=== PATIENT | female | born 1985 | race Caucasian/White ===

== ENCOUNTER 2021-04-23 10:26 | Emergency (ER) | payer OTHER ==
--- NOTE | 2021-04-23 11:45 | RAD REPORT ---
EXAM DESCRIPTION: RADSacrum And Csanhi9004/23/2021 11:39 am CLINICAL HISTORY: Back pain status post fall FINDINGS: No fracture is seen
--- NOTE | 2021-04-23 11:45 | RAD REPORT ---
EXAM DESCRIPTION: RAD - Forearm Right - 04/23/2021 11:39 am CLINICAL HISTORY: Right arm pain status post fall FINDINGS: No fracture is seen.
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
[2021-04-23 12:07] VITALS: BP 126/76; TEMP 98.3; O2SAT 100
[2021-04-23] MEDS ORDERED: CYCLOBENZAPRINE 10 MG TAB ONE (12:23)
[2021-04-23] MEDS ORDERED: predniSONE 20 MG TAB ONE (12:23)
== END 2021-04-23 12:01 | disposition home or self-care (01) ==
LOC: ER 10:26
DX: S60.812A Abrasion of left wrist, initial encounter (principal); S50.11XA Contusion of right forearm, initial encounter; Y04.2XXA Assault by strike against or bumped into by another person, initial encounter; Y92.481 Parking lot as the place of occurrence of the external cause; Z91.041 Radiographic dye allergy status
CPT/HCPCS: 72220; 73090; 99284; J7512

== ENCOUNTER 2024-03-20 16:05 | Emergency (ER) | payer OTHER ==
[2024-03-20] MEDS ORDERED: FAMOTIDINE 20 MG/2 ML VIAL IV ONE (17:46)
[2024-03-20] MEDS ORDERED: KETOROLAC 30 MG/ML INJ ONE (17:46)
[2024-03-20] MEDS ORDERED: ONDANSETRON 4 MG/2 ML VIAL ONE (17:46)
[2024-03-20] MEDS ORDERED: DICYCLOMINE HCL 10 MG CAP ONE (17:46)
[2024-03-20] MEDS ORDERED: NA CHLORIDE 0.9% 1,000 ML ONE (17:47)
[2024-03-20 17:56] LABS: Absolute Eosinophils 0.1 K/uL (0-0.5); Absolute Lymphocytes (CBC) 1.4 K/uL (0.7-4.9); Absolute Monocytes 0.7 K/uL (0.1-1.3); Absolute Neutrophil 4.8 K/uL (1.8-8.0); Basophils % 0.4 % (0-1.3); Eosinophils % 1.3 % (0-4.4); Hemoglobin 13.8 g/dL (12.0-15.0); Lymphocytes % 19.5 % (15.3-44.8); MCH 31.7 pg (27.0-35.0); MCHC 34.4 g/dL (32.0-36.0); MCV 92.3 fL (80-100); MPV 8.6 fL (7.6-11.3); Monocytes % 10.7 % (3.3-12.3); Neutrophils % 68.1 % (41.7-73.7); Nucleated Red Blood Cells % 0.1 % (0-0); Platelets 203 thou/uL (152-406); RBC Red Blood Cell Count 4.33 M/uL (3.86-4.86); Red Cell Distribution Width 13.2 % (12.1-15.2)
[2024-03-20 17:57] LABS: Specific Gravity 1.005 (1.005-1.030)
[2024-03-20 17:58] LABS: Specific Gravity 1.005 (1.005-1.030); Sqamous Epithelial <5 /HPF (None Seen); Urine Bacteria <20 /HPF (<20); Urine Bilirubin NEGATIVE (Negative); Urine Blood Trace (Negative); Urine Clarity Turbid (Clear); Urine Color Colorless (Yellow); Urine Crystals Unidentified Few /HPF (None Seen); Urine Culture Reflex Order NOT NEEDED; Urine Glucose NEGATIVE (Negative); Urine Ketones NEGATIVE (Negative); Urine Microscopic Reflex YN ORDER UMIC; Urine Nitrite NEGATIVE (Negative); Urine Protein NEGATIVE (Negative); Urine RBC <5 /HPF (None Seen); Urine Urobilinogen Normal (Normal); Urine WBC <5 /HPF (<5); Urine Yeast (Budding) Trace /HPF (None Seen)
[2024-03-20 18:17] LABS: Albumin 3.5 g/dL (3.4-5.0); Albumin/Globulin Ratio 0.8 (1.1-1.8); Anion Gap 8.3 mEq/L (5.0-15.0); Bilirubin Total 0.3 mg/dL (0.2-1.0); Globulin 4.4 g/dL (2.3-3.5); Potassium 3.3 mEq/L (3.5-5.1); Protein, Total 7.9 g/dL (6.4-8.2)
[2024-03-20 18:49] LABS: CDIFF INTERNAL NEG CONTROL White Background (WHITE BKGD); STOOL CONSISTENCY Liquid/Semi-Solid
--- NOTE | 2024-03-20 18:50 | RAD REPORT ---
EXAM DESCRIPTION: CT - Abdomen Pelvis Wo Contrast - 03/20/2024 6:41 pm CLINICAL HISTORY: Abdominal pain COMPARISON: 2014 TECHNIQUE: Computed axial tomography of the abdomen and pelvis was obtained. IV and oral contrast we re not requested. All CT scans are performed using dose optimization technique as appropriate and may include automated exposure control or mA/KV adjustment according to patient size. FINDINGS: The evaluation of solid organs, vessels and bowel is limited secondary to the lack of con trast administration. The liver, spleen, pancreas, adrenals and right kidney appear grossly normal. Left nephrectomy No adnexal mass Small umbilical hernia There is no evidence of diverticulitis. IMPRESSION: No acute abnormality is displayed.
[2024-03-20 18:51] LABS: C.diff Antigen/Toxin Ag neg : Tox neg (NEG : NEG)
[2024-03-20] MEDS ORDERED: POTASSIUM 25 MEQ EFFERV TAB ONE (19:14)
--- NOTE | 2024-03-20 19:23 | ER ---
Nurse's Notes [facility] Name: Vicki Rivera Age: 38 yrs Sex: Female : 1985 Arrival Date: 03/20/2024 Time: 16:05 Bed 18 Private MD: Diagnosis: Nausea with vomiting, unspecified;Diarrhea, unspecified;Hypokalemia Presentation: 03/20 16:45 Chief complaint: Patient states: she has been having diarrhea, intolerance to food and ap3 fluids, and lower abdominal pain since Friday. patient also reports fevers that began . patient reports a pain 7/10 on the pain scale. patient also reports skin 'bump' on back that is more irritated than her baseline. Coronavirus screen: At this time, the client does not indicate any symptoms associated with coronavirus-19. Ebola Screen: No symptoms or risks identified at this time. Initial Sepsis Screen: Does the patient meet any 2 criteria? HR > 90 bpm. Does the patient have a suspected source of infection? No. Patient's initial sepsis screen is negative. Risk Assessment: Do you want to hurt yourself or someone else? Patient reports no desire to harm self or others. Onset of symptoms was March 17, 2024. 16:45 Method Of Arrival: Ambulatory ap3 16:45 Acuity: KANDY 3 ap3 Triage Assessment: 16:49 General: Appears ill, Behavior is calm, cooperative, appropriate for age, Reports ap3 chills for fever for feeling ill for fatigue for. Pain: Complains of pain in abdomen. Neuro: Level of Consciousness is awake, alert, obeys commands, Oriented to person, place, time, situation, Appropriate for age. Cardiovascular: Patient's skin is warm and dry. Respiratory: Airway is patent Respiratory effort is even, unlabored, Respiratory pattern is regular, symmetrical. GI: Reports lower abdominal pain, upper abdominal pain, diarrhea, nausea. Historical: - Allergies: 16:49 Iodinated Contrast Media - IV Dye; ap3 - PMHx: 16:49 None; ap3 - PSHx: 16:49 one kidney; ap3 - Immunization history:: Adult Immunizations up to date. - Infectious Disease History:: Denies. - Social history:: Smoking status: Patient denies any tobacco usage or history of. Screenin:50 [facility] ED Fall Risk Assessment (Adult) History of falling in the last 3 months, ap3 including since admission No falls in past 3 months (0 pts) Confusion or Disorientation No (0 pts) Intoxicated or Sedated No (0 pts) Impaired Gait No (0 pts) Mobility Assist Device Used No (0 pt) Altered Elimination No (0 pt) Score/Fall Risk Level 0 - 2 = Low Risk Oriented to surroundings, Maintained a safe environment, Educated pt \T\ family on fall prevention, incl call for assistance when getting out of bed, Assessed \T\ reinforced patient's understanding of fall precautions, Hourly rounding (assess needs \T\ fall precautionary measures) done, Used ambulatory aids as needed (educated on \T\ assisted with), Used gait belt as appropriate. Abuse screen: Denies threats or abuse. Nutritional screening: No deficits noted. Tuberculosis screening: No symptoms or risk factors identified. Assessment: 18:23 General: Appears in no apparent distress. comfortable, Behavior is calm, cooperative, ld1 appropriate for age. Pain: Denies pain. Neuro: Level of Consciousness is awake, alert, obeys commands, Oriented to person, place, time, situation, Appropriate for age. Cardiovascular: Capillary refill < 3 seconds Patient's skin is warm and dry. Respiratory: Airway is patent Respiratory effort is even, unlabored. GI: Abdomen is flat, non-distended. : No signs and/or symptoms were reported regarding the genitourinary system. EENT: No signs and/or symptoms were reported regarding the EENT system. Derm: No signs and/or symptoms reported regarding the dermatologic system. Musculoskeletal: No signs and/or symptoms reported regarding the musculoskeletal system. 19:24 Reassessment: ASSUMED CARE OF PT. PT LYING IN BED. NO DISTRESS NOTED. VS STABLE. FAMILY jj7 AT BEDSIDE. General: Appears in no apparent distress. comfortable, Behavior is calm, cooperative, appropriate for age. Pain: Denies pain. Vital Signs: 16:45 BP 120 / 75; Pulse 106; Resp 17; Pulse Ox 100% ; Weight 63.96 kg; Height 5 ft. 4 in. ; ap3 Pain 7/10; 16:51 Temp 98.9(O); ap3 18:23 BP 103 / 63; Pulse 75; Resp 18; Pulse Ox 100% on R/A; ld1 19:24 BP 103 / 68; Pulse 93; Resp 17; Pulse Ox 100% ; jj7 19:42 BP 101 / 66; Pulse 90; Resp 17; Temp 98.1; Pulse Ox 100% ; jj7 16:45 Body Mass Index 24.20 (63.96 kg, 162.56 cm) ap3 16:45 Pain Scale: Adult ap3 ED Course: 16:23 Patient arrived in ED. mg5 16:24 Ranjana Gandara FNP-C is PHCP. kb 16:24 Roby Monroy MD is Attending Physician. kb 16:49 Triage completed. ap3 16:50 Arm band placed on right wrist. ap3 17:40 C.difficile Sent. tl4 17:40 Stool Culture Sent. tl4 17:40 CBC with Diff Sent. tl4 17:40 CMP Sent. tl4 17:40 Lipase Sent. tl4 17:40 Test, Urine Sent. tl4 17:40 Urinalysis w/ reflexes Sent. tl4 17:40 Initial lab(s) drawn, by ct, sent to lab. Urine collected: clean catch specimen, STOOL tl4 CULTURE. Inserted saline lock: 22 gauge in right antecubital area, using aseptic technique. Blood collected. Flushed with 10 mL NS. 17:57 PHCP role handed off by Ranjana Gandara FNP-C cp 17:57 Chance Brand PA is PHCP. cp 18:23 Nadine Hicks, ISAAK is Primary Nurse. ld1 18:23 Patient has correct armband on for positive identification. Placed in gown. Bed in low ld1 position. Call light in reach. Side rails up X2. Pulse ox on. NIBP on. Door closed. Noise minimized. Warm blanket given. 18:23 No provider procedures requiring assistance completed. ld1 18:43 Abdomen In Process Unspecified. EDMS 19:42 IV discontinued, intact, bleeding controlled, No redness/swelling at site. Pressure jj7 dressing applied. Administered Medications: 17:55 Drug: Dicyclomine PO 20 mg PO once Route: PO; tl4 19:44 Follow up: Response: Marked relief of symptoms jj7 17:56 Drug: NS 0.9% IV 1000 ml IV at 1 bolus Per protocol; 1000 mL bolus Route: IV; Rate: 1 tl4 bolus; Site: right antecubital; Delivery: Primary tubing; 19:44 Follow up: IV Status: Completed infusion jj7 17:56 Drug: Famotidine IVP 20 mg IVP once; dilute with 10 mL 0.9% NaCl; give over 2 minutes tl4 Route: IVP; Infused Over: 2 mins; Site: right antecubital; 19:44 Follow up: Response: Marked relief of symptoms jj7 17:56 Drug: Ondansetron IVP 4 mg IVP once; over 2 minutes Route: IVP; Infused Over: 2 mins; tl4 Site: right antecubital; 19:44 Follow up: Response: Marked relief of symptoms jj7 17:57 Drug: TORadol - Ketorolac IVP 15 mg IVP once Route: IVP; Site: right antecubital; tl4 19:44 Follow up: Response: Marked relief of symptoms jj7 19:24 Drug: Potassium PO Effervescent Tablet 50 mEq PO once; dissolve in 4 ounces of water or jj7 juice Route: PO; 19:43 Follow up: Response: No adverse reaction jj7 Medication: 18:23 VIS not applicable for this client. ld1 Outcome: 19:23 Discharge ordered by . nichelle 19:42 Discharged to home ambulatory, with significant other, jj7 19:42 Condition: improved 19:42 Discharge instructions given to patient, Instructed on discharge instructions, medication usage, Demonstrated understanding of instructions, medications, Prescriptions given X 2, 19:44 Patient left the ED. jj7 Signatures: Dispatcher [employer] EDMS Ranjana Gandara, ANNALISA-C TONGUE AND QUARTER STITCHER-Chance Alvarez PA PA cp Prokisch, Amanda, RN RN ap3 Nadine Hicks RN RN ld1 Arsen Pardo RN RN jj7 Tawny Chapa mg5 Bar Cabezas RN RN tl4 Corrections: (The following items were deleted from the chart) 16:50 16:45 Chief complaint: Patient states: she has been having diarrhea, intolerance to ap3 food and fluids, and lower abdominal pain since Friday. patient also reports fevers that began . patient reports a pain 7/10 on the pain scale ap3
--- NOTE | 2024-03-20 19:23 | EDPHYS ---
Physician Documentation [facility] Name: Vicki Rivera Age: 38 yrs Sex: Female : 1985 Arrival Date: 03/20/2024 Time: 16:05 Bed 18 Private MD: ED Physician Roby Monroy HPI: 03/20 16:55 This 38 yrs old Female presents to ER via Ambulatory with complaints of Flu Symptoms. kb 16:55 Pt is a 38 year old female who presents for diarrhea, nausea, abd pain and intermittent kb fever that started 4 days ago and has gotten worse. Denies any alleviating or aggravating factors. Reports coworker had a "24 hour bug" with diarrhea this week but was only out for one day so she thinks this is something else. . Historical: - Allergies: 16:49 Iodinated Contrast Media - IV Dye; ap3 - PMHx: 16:49 None; ap3 - PSHx: 16:49 one kidney; ap3 - Immunization history:: Adult Immunizations up to date. - Infectious Disease History:: Denies. - Social history:: Smoking status: Patient denies any tobacco usage or history of. ROS: 16:55 Constitutional: As per HPI kb Exam: 16:55 Constitutional: This is a well developed, well nourished patient who is awake, alert, kb and in no acute distress. Head/Face: Normocephalic, atraumatic. ENT: Moist Mucous membranes Cardiovascular: Regular rate Respiratory: Respirations even and unlabored. No increased work of breathing. Talking in full sentences Skin: Warm, dry with normal turgor. Normal color. MS/ Extremity: Pulses equal, no cyanosis. Neurovascular intact. Full, normal range of motion. Neuro: Awake and alert, GCS 15, oriented to person, place, time, and situation. Moves all extremities. Normal gait. 16:55 Abdomen/GI: Inspection: abdomen appears normal, Bowel sounds: normal, Palpation: soft, in all quadrants, mild abdominal tenderness, in the right lower quadrant, Vital Signs: 16:45 BP 120 / 75; Pulse 106; Resp 17; Pulse Ox 100% ; Weight 63.96 kg; Height 5 ft. 4 in. ; ap3 Pain 7/10; 16:51 Temp 98.9(O); ap3 18:23 BP 103 / 63; Pulse 75; Resp 18; Pulse Ox 100% on R/A; ld1 19:24 BP 103 / 68; Pulse 93; Resp 17; Pulse Ox 100% ; jj7 19:42 BP 101 / 66; Pulse 90; Resp 17; Temp 98.1; Pulse Ox 100% ; jj7 16:45 Body Mass Index 24.20 (63.96 kg, 162.56 cm) ap3 16:45 Pain Scale: Adult ap3 MDM: 16:24 Patient medically screened. kb 16:55 Data reviewed: vital signs, nurses notes. kb 03/20 16:49 Order name: CBC with Diff; Complete Time: 18:00 kb 03/20 16:49 Order name: CMP; Complete Time: 19:11 kb 03/20 19:11 Interpretation: Normal except: K 3.3; BUN 6; CRE 1.06; GFR 70; GLOB 4.4; A/G 0.8. cp 03/20 16:49 Order name: Lipase; Complete Time: 19:11 kb 03/20 16:49 Order name: Test, Urine; Complete Time: 18:00 kb 03/20 16:49 Order name: Urinalysis w/ reflexes; Complete Time: 18:00 kb 03/20 16:49 Order name: Stool Culture kb 03/20 16:49 Order name: C.difficile; Complete Time: 19:11 kb 03/20 17:50 Order name: Abdomen ; Complete Time: 19:11 EDMS 03/20 16:49 Order name: IV Saline Lock; Complete Time: 17:40 kb 03/20 16:49 Order name: Labs collected and sent; Complete Time: 17:40 kb 03/20 19:12 Order name: PO challenge; Complete Time: 19:24 cp Administered Medications: 17:55 Drug: Dicyclomine PO 20 mg PO once Route: PO; tl4 19:44 Follow up: Response: Marked relief of symptoms jj7 17:56 Drug: NS 0.9% IV 1000 ml IV at 1 bolus Per protocol; 1000 mL bolus Route: IV; Rate: 1 tl4 bolus; Site: right antecubital; Delivery: Primary tubing; 19:44 Follow up: IV Status: Completed infusion jj7 17:56 Drug: Famotidine IVP 20 mg IVP once; dilute with 10 mL 0.9% NaCl; give over 2 minutes tl4 Route: IVP; Infused Over: 2 mins; Site: right antecubital; 19:44 Follow up: Response: Marked relief of symptoms jj7 17:56 Drug: Ondansetron IVP 4 mg IVP once; over 2 minutes Route: IVP; Infused Over: 2 mins; tl4 Site: right antecubital; 19:44 Follow up: Response: Marked relief of symptoms jj7 17:57 Drug: TORadol - Ketorolac IVP 15 mg IVP once Route: IVP; Site: right antecubital; tl4 19:44 Follow up: Response: Marked relief of symptoms jj7 19:24 Drug: Potassium PO Effervescent Tablet 50 mEq PO once; dissolve in 4 ounces of water or jj7 juice Route: PO; 19:43 Follow up: Response: No adverse reaction jj7 Disposition: 19:45 Co-signature as Attending Physician, Roby Monroy MD I reviewed the patient's care rt provided by the Advanced Practice Provider and agree with the diagnosis and treatment plan. Disposition Summary: 03/20/24 19:23 Discharge Ordered Notes: Location: Home cp Problem: new cp Symptoms: have improved cp Condition: Stable cp Diagnosis - Nausea with vomiting, unspecified cp - Diarrhea, unspecified cp - Hypokalemia cp Followup: cp - With: Private Physician - When: 2 - 3 days - Reason: Worsening of condition Discharge Instructions: - Discharge Summary Sheet cp - Food Choices to Help Relieve Diarrhea, Adult cp - Diarrhea, Adult cp - Nausea and Vomiting, Adult cp Forms: - Medication Reconciliation Form cp - Antibiotic Education cp - Prescription Opioid Use cp - Patient Portal Instructions cp - Leadership Thank You Letter cp Prescriptions: - Zofran 4 mg Oral Tablet - take 1 tablet ORAL route every 12 hours As needed; 20 tablet; Refills: 0, cp Product Selection Permitted - dicyclomine 20 mg Oral tablet - take 1 tablet ORAL route 4 times per day; 30 tablet; Refills: 0, Product cp Selection Permitted Signatures: Dispatcher [employer] Ranjana Nelson FNP-C FNP-Chance Alvarez PA PA cp Rosemarie Clark RN RN ap3 Nadine Hicks RN RN ld1 Arsen Pardo RN RN jj7 Roby Monroy MD MD rt Logdahl, Bar, RN RN tl4 Corrections: (The following items were deleted from the chart) 16:49 16:49 Abdomen Pelvis W Con+CT.RAD.BRZ ordered. EDMS EDMS
[2024-03-20 19:49] VITALS: O2SAT 100
[2024-03-20 19:59] VITALS: BP 101/66; TEMP 98.1
== END 2024-03-20 19:44 | disposition home or self-care (01) ==
LOC: ER 16:05
DX: R11.2 Nausea with vomiting, unspecified (principal); R19.7 Diarrhea, unspecified; E87.6 Hypokalemia; R10.31 Right lower quadrant pain
CPT/HCPCS: 96361; 87045; 85025; 81001; 36415; 81025; 87046; 87324; 83690; 80053; 74176; 96375; 96374; 99284; J2405; J7030

== ENCOUNTER 2024-11-12 08:32 | Emergency (ER) | payer OTHER ==
--- NOTE | 2024-11-12 10:07 | RAD REPORT ---
Exam:Hand Right 3 View HISTORY: Right hand pain FINDINGS: Moderately displaced comminuted fracture distal diaphysis fifth metacarpal with some angulation prese nt at the fracture site. Possible lucency surrounding the fracture site may indicate that this is pathologic. No dislocation
--- NOTE | 2024-11-12 10:43 | ER ---
Nurse's Notes [facility] Name: Vicki Rivera Age: 39 yrs Sex: Female : 1985 Arrival Date: 11/12/2024 Time: 08:32 Bed 19 Private MD: Diagnosis: Fracture of right fifth metacarpal Presentation: 11/12 08:47 Chief complaint: Patient states: she was playing with her son last night at approx 1830 ap3 when she injured her right hand. patient is complaining of throbbing pain to her right hand after icing and one ibuprofen. Coronavirus screen: At this time, the client does not indicate any symptoms associated with coronavirus-19. Ebola Screen: No symptoms or risks identified at this time. Initial Sepsis Screen: Does the patient meet any 2 criteria? No. Patient's initial sepsis screen is negative. Does the patient have a suspected source of infection? No. Patient's initial sepsis screen is negative. Risk Assessment: Do you want to hurt yourself or someone else? Patient reports no desire to harm self or others. Onset of symptoms was November 11, 2024 at 18:30. 08:47 Method Of Arrival: Ambulatory ap3 08:47 Acuity: KANDY 4 ap3 Triage Assessment: 08:49 General: Appears in no apparent distress. Behavior is calm, cooperative, appropriate ap3 for age. Pain: Complains of pain in right hand Pain began 1 day ago. Neuro: Level of Consciousness is awake, alert, obeys commands, Oriented to person, place, time, situation, Appropriate for age. Cardiovascular: Patient's skin is warm and dry. Respiratory: Airway is patent Respiratory effort is even, unlabored, Respiratory pattern is regular, symmetrical. Historical: - Allergies: 08:49 Iodinated Contrast Media - IV Dye; ap3 - Home Meds: 08:49 None [Active]; ap3 - PMHx: 08:49 None; ap3 - PSHx: 08:49 one kidney; ap3 - Immunization history:: Client reports receiving the 1st dose of the Covid vaccine, Flu vaccine is not up to date. - Infectious Disease History:: Denies. - Social history:: Smoking status: Patient denies any tobacco usage or history of. - Family history:: not pertinent. Screenin:[facility] ED Fall Risk Assessment (Adult) History of falling in the last 3 months, ap3 including since admission No falls in past 3 months (0 pts) Confusion or Disorientation No (0 pts) Intoxicated or Sedated No (0 pts) Impaired Gait No (0 pts) Mobility Assist Device Used No (0 pt) Altered Elimination No (0 pt) Score/Fall Risk Level 0 - 2 = Low Risk Oriented to surroundings, Maintained a safe environment, Educated pt \T\ family on fall prevention, incl call for assistance when getting out of bed, Assessed \T\ reinforced patient's understanding of fall precautions, Hourly rounding (assess needs \T\ fall precautionary measures) done, Used ambulatory aids as needed (educated on \T\ assisted with). Abuse screen: Denies threats or abuse. Nutritional screening: No deficits noted. Tuberculosis screening: No symptoms or risk factors identified. Assessment: 09:00 General: Appears comfortable, Behavior is calm, cooperative. Pain: Complains of pain in aa5 right hand Quality of pain is described as aching, throbbing. Neuro: Level of Consciousness is awake, alert, obeys commands, Oriented to person, place, time, situation. Cardiovascular: Patient's skin is warm and dry. Respiratory: Airway is patent Respiratory effort is even, unlabored, Respiratory pattern is regular, symmetrical. GI: No signs and/or symptoms were reported involving the gastrointestinal system. : No signs and/or symptoms were reported regarding the genitourinary system. EENT: No signs and/or symptoms were reported regarding the EENT system. Derm: Skin is pink, warm \T\ dry. Musculoskeletal: Swelling present in dorsum of right hand Reports pain in right hand. 11:10 Reassessment: Patient is alert, oriented x 3, equal unlabored respirations, skin aa5 warm/dry/pink. Vital Signs: 08:47 BP 117 / 75; Pulse 77; Resp 17; Temp 98.1; Pulse Ox 100% ; Weight 66.22 kg; Height 5 ap3 ft. 4 in. ; 08:47 Body Mass Index 25.06 (66.22 kg, 162.56 cm) ap3 ED Course: 08:35 Patient arrived in ED. cj3 08:42 Alessia Lauren, ISAAK is Primary Nurse. aa5 08:46 Roby Monroy MD is Attending Physician. rt 08:49 Triage completed. ap3 08:50 Arm band placed on left wrist. ap3 09:00 Patient has correct armband on for positive identification. Bed in low position. Call aa5 light in reach. Side rails up X 1. 09:39 No provider procedures requiring assistance completed. aa5 09:46 Hand Right 3 View XRAY In Process Unspecified. EDMS 10:42 oJhn Burch MD is Referral Physician. rt 11:10 Orthoglass splint: Ulnar gutter/Boxer splint applied on right forearm. aa5 11:20 Patient did not have IV access during this emergency room visit. aa5 Administered Medications: No medications were administered Medication: 09:39 VIS not applicable for this client. aa5 Outcome: 10:42 Discharge ordered by MD. rt 11:20 Discharged to home ambulatory, aa5 11:20 Condition: stable 11:20 Discharge instructions given to patient, Instructed on discharge instructions, follow up and referral plans. Demonstrated understanding of instructions, follow-up care, 11:24 Patient left the ED. ap3 Signatures: Dispatcher [employer] EDNE Alessia Lauren RN RN aa5 Rosemarie Clark RN RN ap3 Roby Monroy MD MD rt Liz Pardo cj3 Corrections: (The following items were deleted from the chart) 19:58 09:00 Musculoskeletal: Reports pain in right hand aa5 aa5
--- NOTE | 2024-11-12 10:43 | EDPHYS ---
Physician Documentation [facility] Name: Vicki Rivera Age: 39 yrs Sex: Female : 1985 Arrival Date: 11/12/2024 Time: 08:32 Bed 19 Private MD: ED Physician Roby Monroy HPI: 11/12 09:29 This 39 yrs old Female presents to ER via Ambulatory with complaints of RT Hand Injury. rt 09:29 Patient presents to the ED with a right hand injury. Patient was playing with her son rt when excellently got hit on the hand at about the right fifth metacarpal. This happened last night. Reports bruising to the area with pain, worse with movement. Denies other injury or complaints, symptoms are moderate severity, no other aggravating or alleviating factors.. Historical: - Allergies: 08:49 Iodinated Contrast Media - IV Dye; ap3 - Home Meds: 08:49 None [Active]; ap3 - PMHx: 08:49 None; ap3 - PSHx: 08:49 one kidney; ap3 - Immunization history:: Client reports receiving the 1st dose of the Covid vaccine, Flu vaccine is not up to date. - Infectious Disease History:: Denies. - Social history:: Smoking status: Patient denies any tobacco usage or history of. - Family history:: not pertinent. ROS: 09:29 Constitutional: Negative for fever, chills, and weight loss, Skin: Negative for injury, rt rash, and discoloration, Neuro: Negative for headache, weakness, numbness, tingling, and seizure, Psych: Negative for depression, anxiety, suicide ideation, homicidal ideation, and hallucinations, 09:29 MS/extremity: Positive for contusion, pain, Exam: 09:29 Constitutional: This is a well developed, well nourished patient who is awake, alert, rt and in no acute distress. Head/Face: Normocephalic, atraumatic. Skin: Warm, dry with normal turgor. Normal color with no rashes, no lesions, and no evidence of cellulitis. Neuro: Awake and alert, GCS 15, oriented to person, place, time, and situation. Cranial nerves II-XII grossly intact. Motor strength 5/5 in all extremities. Sensory grossly intact. Cerebellar exam normal. Normal gait. Psych: Awake, alert, with orientation to person, place and time. Behavior, mood, and affect are within normal limits. 09:29 Musculoskeletal/extremity: Swelling, contusion overlying the distal right fifth metacarpal, no deformities noted, good capillary refill, pulses, motor, sensation intact. Vital Signs: 08:47 BP 117 / 75; Pulse 77; Resp 17; Temp 98.1; Pulse Ox 100% ; Weight 66.22 kg; Height 5 ap3 ft. 4 in. ; 08:47 Body Mass Index 25.06 (66.22 kg, 162.56 cm) ap3 MDM: 08:47 Medical Screening Exam initiated rt 11:17 Differential Diagnosis Fracture, contusion. Data reviewed: vital signs, nurses notes, rt radiologic studies. Independent interpretation of the following test(s) in the Emergency Department X-Ray: My interpretation is Boxer's fracture seen on my interpretation of x-ray images. Counseling: I had a detailed discussion with the patient and/or guardian regarding the historical points, exam findings, and any diagnostic results supporting the discharge/admit diagnosis, radiology results, the need for outpatient follow up, Discussed with patient findings of possible pathologic fracture and I gave her a handout of the radiology report. Explained to her the meaning of a pathologic fracture and that she will require further evaluation from her primary care for further investigations. Patient verbalizes understanding.. 11/12 08:53 Order name: Hand Right 3 View XRAY; Complete Time: 10:08 rt 11/12 10:42 Order name: Ulnar Gutter splint; Complete Time: 11:24 aa5 Administered Medications: No medications were administered Disposition Summary: 11/12/24 10:42 Discharge Ordered Notes: Location: Home rt Problem: new rt Symptoms: have improved rt Condition: Stable rt Diagnosis - Fracture of right fifth metacarpal rt Followup: rt - With: John Burch MD - When: 2 - 3 days - Reason: Discharge Instructions: - Discharge Summary Sheet rt - Boxer's Fracture rt Forms: - Medication Reconciliation Form rt - Antibiotic Education rt - Prescription Opioid Use rt - Patient Portal Instructions rt - Leadership Thank You Letter rt Addendum: 11/13/2024 19:30 Addendum: Patient came back several hours after discharge, stating that she felt that r t the splint was cutting into the hand more towards the thumb side. I brought her back, I evaluated the splinting, it did appear to be too tight on the Hi bandage around the thumb area, I rewrapped that portion of the splint, patient states that those symptoms had completely resolved and he feels much more comfortable now. A retest capillary refill, was appropriate and was able to move fingers. Sensation was intact following reapplication. Signatures: Dispatcher [employer] Alessia Worthy RN RN aa5 Rosemarie Clark RN RN ap3 Roby Monroy MD MD rt
[2024-11-12 11:28] VITALS: BP 117/75; TEMP 98.1; O2SAT 100
== END 2024-11-12 11:24 | disposition home or self-care (01) ==
LOC: ER 08:32
DX: S62.306A Unspecified fracture of fifth metacarpal bone, right hand, initial encounter for closed fracture (principal)
CPT/HCPCS: 99283